=== PATIENT | male | born 1995 | race Caucasian/White ===

== ENCOUNTER 2025-01-30 23:54 | Emergency (ER) | payer BC, OTHER ==
[2025-01-31 00:33] LABS: ALT (SGPT) 43 U/L (Less than 45); AST (SGOT) 39 U/L (11-34); Albumin 4.8 g/dL (3.1-4.5); Alkaline Phosphatase 118 U/L (40-110); Anion Gap 15 mmol/L (10-20); BUN (Urea Nitrogen) 5 mg/dL (8.9-20.6); Bilirubin, Total 0.6 mg/dL (0.3-1.2); Calc. Creatinine Clearance 0 mL/min (70-130); Calcium 9.5 mg/dL (7.8-10.44); Carbon Dioxide 26 mmol/L (22-29); Chloride 98 mmol/L (98-107); Globulin 3.4 g/dL (2.4-3.5); Glucose 110 mg/dL (70-105); Potassium 3.8 mmol/L (3.5-5.1); Sodium 135 mmol/L (136-145)
[2025-01-31 00:38] LABS: Troponin I Less than 0.010 ng/mL (< 0.028)
[2025-01-31 00:48] LABS: #Basophils 0.08 10x3/uL (0.0-0.2); #Eosinophils 0.40 10x3/uL (0.0-0.5); #Monocytes 0.66 10x3/uL (0.0-1.1); #Neutrophils 3.55 10x3/uL (1.5-8.4); %Basophils 0.9 % (0.0-2.0); %Eosinophils 4.4 % (0.0-6.0); %Lymphocytes 48.0 % (18.0-47.0); %Monocytes 7.3 % (0.0-10.0); %Neutrophils 39.3 % (40.0-75.0); Hematocrit 46.6 % (38.8-50.0); Hemoglobin 16.9 g/dL (13.5-17.5); Mean Corpuscular Hemoglobin 35.6 pg (27.0-33.0); Mean Corpuscular Volume 98.1 fL (81.2-95.1); Platelet Count 354 10x3/uL (150-450); Red Blood Cell (RBC) Count 4.75 10x6/uL (4.32-5.72); White Blood Cell (WBC) Count 9.03 10x3/uL (3.5-10.5)
== END 2025-01-31 02:35 | disposition home or self-care (01) ==
LOC: CSHERS 23:54
DX: R06.02 Shortness of breath (principal); F43.0 Acute stress reaction; F17.210 Nicotine dependence, cigarettes, uncomplicated
CPT/HCPCS: 71045; 80053; 84484; 85025; 93005